=== PATIENT | female | born 1985 | race Native Hawaiian/Other Pacific Islander ===

== ENCOUNTER 2017-07-05 21:12 | Emergency (ER) | payer BC ==
[~2017-07-05] VITALS: Ht 165.1 cm; Wt 90.3 kg
[2017-07-05 22:03] LABS: PLATELET COUNT 234 K/uL (152-353)
[2017-07-05 23:16] VITALS: BP 111/74; TEMP 97.8
== END 2017-07-05 23:18 | disposition home or self-care (01) ==
LOC: ED 21:12
PROVIDERS: Emergency Medicine
DX: A08.4 Viral intestinal infection, unspecified (principal); R11.2 Nausea with vomiting, unspecified
CPT/HCPCS: 36415; 74022; 81000; 81025; 85027; 96365; 96375; 99284; J2405

== ENCOUNTER 2021-09-28 16:19 | Emergency (ER) | payer OTHER ==
[~2021-09-28] VITALS: Ht 165.1 cm; Wt 97.1 kg
[2021-09-28 17:05] LABS: PLATELET COUNT 215 K/uL (152-353)
[2021-09-28 17:13] LABS: SODIUM 139 mmol/L (136-145)
[2021-09-28 17:20] LABS: PARTIAL THROMBOPLASTIN TIME 26.4 SECONDS (24.5-33.6)
[2021-09-28 19:17] VITALS: BP 131/81; TEMP 98.1
== END 2021-09-28 19:17 | disposition home or self-care (01) ==
LOC: ED 16:19
PROVIDERS: Hospitalist
DX: J06.9 Acute upper respiratory infection, unspecified (principal); J40 Bronchitis, not specified as acute or chronic; F17.210 Nicotine dependence, cigarettes, uncomplicated
CPT/HCPCS: 80053; 80320; 81000; 82550; 83880; 84484; 85027; 85610; 85730; 87502; 93005; 96372; 99283; J0696